=== PATIENT | male | born 1980 ===

== ENCOUNTER 2016-11-07 10:50 | Emergency (ER) | payer OTHER ==
[2016-11-07 10:58] VITALS: BP 141/88
--- NOTE | 2016-11-07 11:10 | UC ---
UC General HPI - HPI Summary HPI Summary: The patient comes in today for: 1. Rectal bleeding: Onset: Hemorrhoid started 5 days ago. Bleeding started yesterday. Palliative/provocative: Touching and defecating makes the pain worse. Quality: Burning. Region: Rectal Severity: 210 Time: Constant. Associated symptoms: Previous treatment: Sitz bath and Preparation H. EAting: He eats what he wants. No constipation problems. Bowel movements: Every day mostly. Previous disease: He has had this before. He used Preparation H only. He states that the swollen area in the anal area was "twice the size" it is now. He states that over the last 24 hours it has reduced in size. However, he states that around the time that the area was shrinking in size, there was increased in blood being released. * - History of Current Complaint Chief Complaint: UCGeneralIllness Stated Complaint: PERSONAL Time Seen by Provider: 11/07/16 10:53 Hx Obtained From: Patient - Allergy/Home Medications Allergies/Adverse Reactions: Allergies Allergy/AdvReac Type Severity Reaction Status Date / Time Penicillins Allergy Unknown Verified 11/07/16 10:59 Reaction Details Home Medications: Home Medications Hemorrhoidal OINT* [Preparation H*] 1 applic GA Q12H PRN 11/07/16 [History Confirmed 11/07/16] PMH/Surg Hx/FS Hx/Imm Hx Previously Healthy: Yes - Surgical History Surgical History: None - Family History Known Family History: Negative: Cardiac Disease, Hypertension - Social History Occupation: Employed Full-time Alcohol Use: Daily Alcohol Amount: 2 beers Substance Use Type: None Smoking Status (MU): Heavy Every Day Tobacco Smoker Amount Used/How Often: 1/2 ppd Review of Systems Skin: Negative Eyes: Negative ENT: Negative Respiratory: Negative Cardiovascular: Negative Gastrointestinal: Negative Genitourinary: Negative All Other Systems Reviewed And Are Negative: Yes Physical Exam Triage Information Reviewed: Yes Appearance: Well-Appearing, No Pain Distress, Well-Nourished Vital Signs: Initial Vital Signs Temp 99 F 11/07/16 10:53 Pulse 65 11/07/16 10:53 Resp 16 11/07/16 10:53 BP 141/88 11/07/16 10:53 Pulse Ox 100 11/07/16 10:53 Vital Signs Reviewed: Yes Eyes: Positive: Conjunctiva Clear ENT: Positive: Hearing grossly normal. Negative: Pharyngeal erythema, Nasal congestion, Nasal drainage, TM bulging, TM dull, TM red, Tonsillar swelling, Tonsillar exudate Dental: Negative: Gross Decay/Caries @, Dental Fracture @ Neck: Positive: Supple, Nontender, No Lymphadenopathy. Negative: Nuchal Rigidity Respiratory: Positive: Lungs clear, No respiratory distress, No accessory muscle use. Negative: Rhonchi, Wheezing Cardiovascular: Positive: RRR, No Murmur Abdomen Description: Positive: Nontender, No Organomegaly, Soft. Negative: Distended, Guarding Musculoskeletal: Positive: ROM Intact, No Edema Neurological: Positive: Alert, Muscle Tone Normal Psychological: Positive: Age Appropriate Behavior, Consolable Skin: Negative: rashes, breakdown UC Physical Exam Vital Signs On Initial Exam: Initial Vitals Temp Pulse Resp BP Pulse Ox 99 F 65 16 141/88 100 11/07/16 10:53 11/07/16 10:53 11/07/16 10:53 11/07/16 10:53 11/07/16 10:53 - Rectal Exam Prostate Exam: Other - Rectal: external: there is a thrombosed hemorroid about 3/4" in length and 1/2" in width. There is a 2-3 mm arounded opening in the area , but no active bleeding at this time. It is tender, but not particularly erythematous. Course/Dx - Course Course Of Treatment: Patient told of his treatment options. AT this time, he just wants to go with topical treatment. Time was taken to educate him on treatment, and what to expect as it heals. - Differential Dx - Multi-Symptom Provider Diagnoses: Thrombosed hemorrhoid. Discharge - Discharge Plan Condition: Stable Disposition: HOME Patient Education Materials: Hemorrhoids (ED), Rectal Bleeding (ED), Thrombosed Hemorrhoid (ED) Additional Instructions: Please see your primary care provider in about a week. If you don't have a primary care provider, please reference the included sheet of local provider. If you get worse, please be seen sooner.
== END 2016-11-07 11:53 | disposition home or self-care (01) ==
LOC: UCCORT 10:50
DX: K64.5 Perianal venous thrombosis (principal); F17.210 Nicotine dependence, cigarettes, uncomplicated; Z88.0 Allergy status to penicillin
CPT/HCPCS: 99202; G0463